=== PATIENT | female | born 1980 | race African-American/Black ===

== ENCOUNTER 2021-02-20 20:28 | Emergency (ER) | payer OTHER, SELFPAY ==
--- NOTE | 2021-02-20 21:29 | PC.NURSE ---
2109- no answer when called
== END 2021-02-20 21:59 | disposition left against medical advice (07) ==
LOC: ANHED 21:45
PROVIDERS: PCP Nurse Practitioner Family
DX: Z53.21 Procedure and treatment not carried out due to patient leaving prior to being seen by health care provider (principal)
CPT/HCPCS: 99199

== ENCOUNTER 2021-04-27 16:34 | Emergency (ER) | payer OTHER, SELFPAY ==
[2021-04-27] VITALS (8 sets, daily range): BP systolic 130–173; BP diastolic 79–118; PULSE 85–96; RESP 14–18; TEMP 36.4; O2SAT 96–99
--- NOTE | 2021-04-27 16:40 | ECG_ITS ---
Measurements Intervals [place] Rate: 81 P: 26 DE: 142 QRS: -1 QRSD: 87 T: 9 QT: 386 QTc: 449 Interpretive Statements SINUS RHYTHM INCOMPLETE RIGHT BUNDLE BRANCH BLOCK VOLTAGE CRITERIA FOR LVH MINIMAL Q WAVES- HIGH LATERAL LEADS BORDERLINE T WAVE ABNORMALITY- INFERIOR LEADS BORDERLINE ECG Electronically Signed On 04-27-2021 17:00:50 CDT by Apollo Prabhakar D.O.
[2021-04-27 17:13] LABS: Basophils Percent Auto 0.4 % (0.2-1.2); Eosinophils Percent Auto 0.5 % (0-4.4); Hematocrit 36.1 % (37.0-47.0); Hemoglobin 11.2 g/dL (12.0-15.0); Immature Granulocyte Absolute 0.03 K/mm3 (0.00-0.031); Immature Granulocyte Percent A 0.4 % (0-0.5); Lymphocytes Absolute Auto 1.65 K/mm3 (0.9-3.2); Lymphocytes Percent Auto 22.2 % (18.3-44.2); Mean Corpuscular Hemoglobin 25.7 pg (26-34); Mean Corpuscular Volume 82.8 fl (80-100); Monocytes Absolute Auto 0.5 K/mm3 (0.1-0.6); Monocytes Percent Auto 6.9 % (2.6-8.5); Neutrophils Absolute Auto 5.2 K/mm3 (1.3-6.7); Neutrophils Percent Auto 69.6 % (45.5-73.1); Platelet Count Result 285 k/mm3 (150-375); Red Blood Count 4.36 M/mm3 (4.2-5.4); Red Cell Distribution Width 14.3 % (11.5-14.5); White Blood Count 7.4 K/mm3 (4.5-10.0)
[2021-04-27 17:20] LABS: Glucose Point of Care 201 mg/dl (65-105)
[2021-04-27 17:29] LABS: Anion Gap 11 mmol/L (8-16); Blood Urea Nitrogen 12 mg/dL (7-17); Calcium 9.5 mg/dL (8.4-10.2); Carbon Dioxide 25 mmol/L (22-30); Chloride 97 mmol/L (98-107); Estimated CRCL calculation 97 ml/min; Estimated Glomerular Filt Rate > 60; Glucose 217 mg/dL (65-110); Potassium 4.2 mmol/L (3.4-5.0); Sodium 133 mmol/L (137-145)
[2021-04-27 18:11] LABS: Add Urine Microscopic? YES; Appearance Urine Cloudy (Clear); Bacteria Urine Trace /hpf; Bilirubin Urine Negative (Negative); Color Urine Amber (Yellow); Glucose Urine UA 2+ mg/dL (Negative); Ketones Urine 2+ mg/dL (Negative); Leukocyte Esterase Ur Negative LEU/UL (Negative); Mucus Urine Heavy /lpf; Nitrate Urine Negative (Negative); Protein Urine 3+ mg/dL (Negative); RBC Urine 0-2 /hpf (0-2); Specific Grav Ur 1.028 (1.001-1.035); Squamous Epithelial Cell Urine Few /hpf (Few); Urobilinogen Urine Negative mg/dL (<2.0); WBC Urine 31-50 /hpf
[2021-04-27 18:15] LABS: Blood Urine Negative (Negative)
[2021-04-27] MEDS: FAMOTIDINE 20 MG/2 ML VIAL IV PUSH (18:34)
[2021-04-27] MEDS: MECLIZINE HCL 25 MG TABLET PO (18:34)
[2021-04-27] MEDS: SODIUM CHLORIDE 0.9% IV 1,000 ML 999 ML IV CONT ×3 (18:35→20:13)
[2021-04-27] MEDS: PROCHLORPERAZINE EDISYLATE 10 MG/2 ML VIAL IV PUSH (18:53)
--- NOTE | 2021-04-27 19:38 | ED.DIZZY ---
HPI - Dizziness General Chief Complaint: Dizziness Stated Complaint: headache, dizzy Time Seen by Provider: 04/27/21 18:19 Source: patient and RN notes reviewed Mode of arrival: ambulatory Limitations: no limitations History of Present Illness HPI Narrative: Patient is a 41-year-old female who presents to emergency department for evaluation of dizziness patient notes that the symptoms began on Tuesday she had emesis and notes that her blood sugar has been elevated patient states at that time she took her Trulicity which causes nausea and she had emesis and has persisted emesis through today patient notes that she has also had mild headache denies any other URI symptoms vomiting diarrhea prior to the onset of the symptoms. Patient notes that she has been trying to tolerate liquids with difficulty. Patient on arrival in no distress does not appear uncomfortable has not taken anything for her symptoms Related Data Home Medications Medication Instructions Recorded Confirmed dulaglutide [Trulicity] mg SUBCUT 09/01/19 metformin 09/01/19 norethindrone (contraceptive) mg 09/01/19 Allergies Allergy/AdvReac Type Severity Reaction Status Date / Time No Known Allergies Allergy Mild Unverified 09/30/18 16:19 Review of Systems Review of Systems: All systems reviewed & are unremarkable except as noted in HPI and below PMFSH Past Medical History Medical History Diabetes Diabetic neuropathy Social History Social History Second hand tobacco smoke exposure: No Alcohol intake: current Exam Narrative: Exam Narrative: GENERAL: Well-appearing, well-nourished, and in no acute distress. HEAD: Normocephalic, atraumatic. EYES: PERRLA and EOMI. ENT: Nares clear, no rhinorrhea or epistaxis. Mucous membranes moist. CHEST: Clear to auscultation. No respiratory distress. No wheezes rales or rhonchi HEART: Regular rate and rhythm. No murmur heard. Normal peripheral pulses. ABDOMEN: Soft, nontender, nondistended EXTREMITIES: Normal range of motion. No edema. SKIN: Warm, dry, no rash. NEURO: No focal deficits. Alert and oriented x3. Cranial nerves II through XII grossly intact PSYCH: Normal mood and affect. Course Course Emergency Course: Patient evaluated emergency department no high risk changes in the evaluation will have her urine cultured has been hydrated tolerating p.o. intake no distress felt appropriate for outpatient reevaluation given reasons to return ABCs and vital signs intact and stable Vital Signs Vital signs: Vital Signs Temperature 97.6 F 04/27/21 17:13 Pulse Rate 86 04/27/21 17:13 Respiratory Rate 18 04/27/21 17:13 Blood Pressure 173/110 H 04/27/21 17:13 Pulse Oximetry 98 04/27/21 17:13 Temperature 97.6 F 04/27/21 17:13 Pulse Rate 96 04/27/21 19:50 Respiratory Rate 18 04/27/21 17:13 Blood Pressure 142/79 H 04/27/21 19:50 Pulse Oximetry 98 04/27/21 19:50 MDM - Dizziness MDM Narrative Medical decision making narrative: Patients headache was not sudden or maximal in onset. There are no focal neurological deficits on exam. Subarachnoid hemorrhage is felt to be unlikey at this time. There is no history of fever, and neck is supple without meningismus, making meningitis unlikely. No traumatic history or signs of trauma on exam. No risk factors for CVA, risk factors reviewed. NO ocular signs on exam and in history to suggest acute glaucoma. Patients headache is felt to be a reasonable candidate for outpatient evaluation Lab Data Result diagrams: 04/27/21 17:02 04/27/21 17:02 Labs: Lab Results 04/27/21 04/27/21 04/27/21 Range/Units 17:02 17:02 17:18 WBC 7.4 (4.5-10.0) K/mm3 RBC 4.36 (4.2-5.4) M/mm3 Hgb 11.2 L (12.0-15.0) g/dL Hct 36.1 L (37.0-47.0) % MCV 82.8 (80-100) fl MCH 25.7 L (26-34) pg MC
[2021-04-27] MEDS: KETOROLAC 30 MG/ML VIAL (*BKC) IV PUSH (20:12)
== END 2021-04-27 21:00 | disposition home or self-care (01) ==
PROVIDERS: Emergency Provider Emergency Medicine; PCP Nurse Practitioner Family
DX: R51.9 Headache, unspecified (principal); R11.10 Vomiting, unspecified; E11.9 Type 2 diabetes mellitus without complications; Z79.84 Long term (current) use of oral hypoglycemic drugs
CPT/HCPCS: 36415; 80048; 81001; 81025; 82948; 85025; 87077; 87086; 87088; 93005; 96361; 96374; 96375; 99284; A9270; J0131; J0780; J1885; J7030

== ENCOUNTER 2022-05-17 07:37 | Observation (INO) | payer OTHER, SELFPAY ==
[2022-05-17] VITALS (21 sets, daily range): BP systolic 150–177; BP diastolic 89–102; PULSE 58–92; RESP 14–19; TEMP 36.4–36.9; O2SAT 98–100; BMI 35.6; BMI 36.1
--- NOTE | 2022-05-17 | ECHO_ITS ---
Patient Info Name: Minoo Hayden Age: 42 years : 1980 Gender: Female Ht: 69 in Wt: 247 lbs BSA: 2.38 m2 HR: 68 bpm BP: 177 / 97 mmHg Technical Quality: Good Exam Date: 05/17/2022 2:17 PM Exam Location: [facility] Room: [facility] Patient Status: Inpatient Admit Date: 05/17/2022 Staff Ordering Physician: Chloé Gonzalez NP Fabrication Technician: Bárbara Mcmanus RDCS Attending Provider: Pat Thomas MD Referring Physician: Carlos SNYDER; Exam Type: CA echo doppler w bubble study Study Info Indications - STROKE SYMPTOMS Complete two-dimensional, color flow and Doppler transthoracic echocardiogram is performed with agitated saline. Contrast/Agitated Saline Contrast/Ag. Saline: Agitated Saline Amount: 20.00 ml Existing IV Access: Yes Summary 1. Left ventricular size and thickness with good contractility of all segments. Normal diastolic function. Ejection fraction 63%. 2. Borderline left atrial enlargement. 3. No significant valve disease. 4. The atrial septum appears intact and normal. No evidence of shunting with agitated saline during normal respiration and Valsalva maneuver. 5. Normal sinus rhythm. Left Ventricle Left ventricular chamber dimension is normal. Left ventricular systolic function is normal, estimated at Empty. There is no increased left ventricular wall thickness. Left ventricular septal wall motion is normal. The left ventricular diastolic function is normal. Right Ventricle Right ventricular chamber dimension is normal. Right ventricular systolic function is normal. Left Atria Left atrial chamber dimension is normal. Right Atria Right atrial chamber dimension is normal. Aortic Valve The aortic valve is trileaflet. There is no aortic valve sclerosis. There is no aortic valve stenosis. There is no aortic valve regurgitation. Pulmonic Valve The pulmonic valve is normal. There is no pulmonic valve stenosis. There is trace pulmonic regurgitation. Mitral Valve The mitral valve has normal leaflets. There is no mitral valve stenosis. There is trace mitral valve regurgitation. Tricuspid Valve The tricuspid valve leaflets are normal. There is no significant tricuspid valve stenosis. There is trace tricuspid valve regurgitation. No pulmonary hypertension, estimated pulmonary arterial systolic pressure is 22 mmHg. Pericardium/Pleural The pericardium appears normal. There is no pericardial effusion. Inferior Vena Cava Normal inferior vena cava with >50% collapse upon inspiration consistent with Empty right atrial pressure, 10 mmHg. Aorta The aortic root size at the sinus of Valsalva is normal. The prox ascending aorta size is normal. Left Ventricular Outflow Tract Name Value Normal LVOT 2D LVOT Diameter 2.1 cm LVOT Doppler LVOT Peak Gradient 5 mmHg LVOT Mean Gradient 3 mmHg LVOT VTI 23 cm LVOT VTI/AV VTI Ratio 0.8 LVOT Stroke Volume
--- NOTE | ~2022-05-17 | XR_ITS ---
EXAMINATION: XR chest 1V DATE: 05/17/2022 08:19 INDICATION: Cough. Left-sided numbness. TECHNIQUE: A single frontal view of the chest was obtained. COMPARISON: Chest 2 views 05/25/2009 FINDINGS: The chest demonstrates clear lungs without pneumonia, pleural effusion, or pneumothorax. Th e heart size is normal. IMPRESSION: 1. No acute cardiopulmonary disease. Reviewed, dictated and finalized at location A.
--- NOTE | ~2022-05-17 | CT_ITS ---
EXAMINATION: CT brain wo con DATE: 05/17/2022 08:14 INDICATION: Left-sided numbness and tingling. TECHNIQUE: Computed tomography (CT) of the head was performed without intravenous contrast. The mA wa s adjusted according to patient size. Iterative reconstruction technique was employed. The dose-lengt h product was 605.33 mGy-cm. COMPARISON: Head CT 09/30/2018 FINDINGS: There is no intracranial hemorrhage, acute infarction, or abnormal intracranial mass lesion . The ventricles are normal in size. The orbits are normal. The paranasal sinuses are clear. The mast oid air cells are normal. IMPRESSION: 1. Normal brain. Reviewed, dictated and finalized at location A. IMPRESSION: 1. Normal brain.
--- NOTE | ~2022-05-17 | US_ITS ---
EXAMINATION: US carotid duplex BI DATE: 05/17/2022 13:07 INDICATION: Right thalamus infarct. TECHNIQUE: Grayscale, color Doppler, and pulsed Doppler images of the cervical carotid arteries were obtained. The degree of vessel stenosis is placed in one of the following categories: normal, <50%, 5 0-69%, >=70% but less than near-occlusion, near-occlusion, or total occlusion. Note that percent sten osis relative to normal distal artery lumen diameter is indirectly measured from velocity measurement s as described by Dawson, et al. Radiology 2003; 229:340-346. COMPARISON: None. FINDINGS: RIGHT: The right common carotid artery (CCA) peak systolic velocity (PSV) is 91 cm/s. The right internal car otid artery (ICA) PSV is 90 cm/s. The right ICA end-diastolic velocity (EDV) is 26 cm/s. The right IC A/CCA PSV ratio is 1.0. Grayscale and color Doppler images yield an estimate of <50% diameter reducti on from plaque in the ICA. There is antegrade flow in the right vertebral artery. LEFT: The left CCA PSV is 82 cm/s. The left ICA PSV is 115 cm/s. The left ICA EDV is 38 cm/s. The left ICA/ CCA PSV ratio is 1.4. Grayscale and color Doppler images yield an estimate of <50% diameter reduction from plaque in the ICA. There is antegrade flow in the left vertebral artery. IMPRESSION: 1. <50% stenosis in the right internal carotid artery. 2. <50% stenosis in the left internal carotid artery. Reviewed, dictated and finalized at location A.
--- NOTE | ~2022-05-17 | US_ITS ---
EXAMINATION:US venous doppler LE BI INDICATION:Leg pain TECHNIQUE: Multiple grayscale, color flow and Doppler images of the right and left lower extremity de ep venous systems were obtained and reviewed. COMPARISON:No prior studies for comparison. FINDINGS: The common femoral, superficial femoral and popliteal veins demonstrate normal respiratory variation, augmentation and compressibility. Color flow is also seen within the posterior tibial, pe roneal, greater saphenous and profunda veins. IMPRESSION: 1: No lower extremity deep venous thrombosis. Reviewed, dictated and finalized at location A.
--- NOTE | ~2022-05-17 | MR_ITS ---
EXAMINATION: MR brain/brain stem wo/w con DATE: 05/17/2022 12:34 INDICATION: Left-sided paresthesias. TECHNIQUE: Magnetic resonance imaging (MRI) of the brain and brainstem was performed without and with 20 mL MultiHance intravenous contrast. COMPARISON: Head CT 05/17/2022 FINDINGS: There is an acute infarct in right thalamus. There is no abnormal mass lesion or intracrani al hemorrhage. There are scattered areas of nonspecific increased T2-weighted signal intensity in the cerebral white matter, which is within normal limits for the patient's age. The ventricles are nay l in size. The paranasal sinuses are clear. The orbits are normal. The mastoid air cells are normal. IMPRESSION: 1. 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 Reviewed, dictated and finalized at location A.
--- NOTE | ~2022-05-17 | XR_ITS ---
EXAMINATION: XR hip RT 2V w AP pelvis DATE: 05/18/2022 10:46 INDICATION: Right hip pain. TECHNIQUE: An anteroposterior view of the pelvis and 2 views of right hip were obtained. COMPARISON: None. FINDINGS: Bone alignment is normal. No fracture. There is mild osteoarthritis of the hips. IMPRESSION: 1. Mild osteoarthritis of the hips. Reviewed, dictated and finalized at location A.
[2022-05-17 07:49] LABS: Glucose Point of Care 331 mg/dl (65-105)
--- NOTE | 2022-05-17 08:03 | ECG_ITS ---
Measurements Intervals [place] Rate: 78 P: 6 [place]: 132 QRS: -16 QRSD: 86 T: 3 QT: 372 QTc: 426 Interpretive Statements SINUS RHYTHM VOLTAGE CRITERIA FOR LVH [MEETS CRITERIA IN ONE OF: R(aVL), S(V1), R(V5), R(V5/V6)+S(V1)] COMPARED TO ECG 04/27/2021 16:55:26 NO SIGNIFICANT CHANGES Electronically Signed On 05-17-2022 14:27:48 CDT by Chevy Lafleur M.D.
--- NOTE | 2022-05-17 08:09 | PC.NURSE ---
pt off floor to CT scan
[2022-05-17 08:14] LABS: Basophils Percent Auto 0.3 % (0.2-1.2); Eosinophils Absolute Auto 0.1 K/mm3 (0-0.3); Eosinophils Percent Auto 1.9 % (0-4.4); Hematocrit 36.8 % (37.0-47.0); Hemoglobin 11.2 g/dL (12.0-15.0); Immature Granulocyte Absolute 0.01 K/mm3 (0.00-0.031); Immature Granulocyte Percent A 0.2 % (0-0.5); Lymphocytes Absolute Auto 1.67 K/mm3 (0.9-3.2); Lymphocytes Percent Auto 26.7 % (18.3-44.2); Mean Corpuscular HGB Conc 30.4 g/dl (32-36); Mean Corpuscular Hemoglobin 24.8 pg (26-34); Mean Corpuscular Volume 81.4 fl (80-100); Mean Platelet Volume 11.2 fl (7.4-10.4); Monocytes Absolute Auto 0.4 K/mm3 (0.1-0.6); Monocytes Percent Auto 6.1 % (2.6-8.5); Neutrophils Absolute Auto 4.1 K/mm3 (1.3-6.7); Neutrophils Percent Auto 64.8 % (45.5-73.1); Platelet Count Result 262 k/mm3 (150-375); Red Blood Count 4.52 M/mm3 (4.2-5.4); Red Cell Distribution Width 14.3 % (11.5-14.5); White Blood Count 6.3 K/mm3 (4.5-10.0)
[2022-05-17 08:26] LABS: Alanine Aminotransferase 15 U/L (6-35); Albumin Level 4.6 g/dL (3.5-5.1); Alkaline Phosphatase 118 U/L (38-126); Anion Gap 11 mmol/L (8-16); Aspartate Amino Transferase 21 U/L (14-36); Bilirubin,Total 0.7 mg/dL (0.2-1.3); Blood Urea Nitrogen 14 mg/dL (7-17); Calcium 9.4 mg/dL (8.4-10.2); Carbon Dioxide 26 mmol/L (22-30); Chloride 94 mmol/L (98-107); Estimated CRCL calculation 106 ml/min; Estimated Glomerular Filt Rate > 60; Glucose 342 mg/dL (65-110); Potassium 3.7 mmol/L (3.4-5.0); Sodium 131 mmol/L (137-145)
[2022-05-17 08:30] LABS: Partial Thromboplastin Time 26.1 SECONDS (22.3-36.8)
--- NOTE | 2022-05-17 08:31 | ED.NEUROSD ---
HPI - Neuro Symptoms/Deficit General Chief Complaint: Suspected CVA Stated Complaint: L sided numbness Time Seen by Provider: 05/17/22 07:50 History of Present Illness HPI Narrative: Patient is a 42-year-old female that presents the emergency department with chief complaint of left-sided numbness. Patient states approximately 1 week ago she had an episode where she had some numbness in her left hand. Patient states it resolved and then at 2 AM Tuesday she started having numbness on the left side of her body from including that the head and left upper extremity and left lower extremity. The patient states its been constant since 2 AM Tuesday and the patient decided to come to the emergency department this morning on Tuesday. The patient reports no chest pain or shortness of breath denies motor weakness denies difficulty with speech denies issues with breakfast attendant strength or ambulation. The patient does report that she has history of diabetes and reports she has history of peripheral neuropathy. Related Data Home Medications Medication Instructions Recorded Confirmed dulaglutide 1.5 mg/0.5 mL mg subcut 09/01/19 subcutaneous pen injector (Trulicity) metformin 09/01/19 norethindrone (contraceptive) 0.35 mg 09/01/19 mg tablet Allergies Allergy/AdvReac Type Severity Reaction Status Date / Time No Known Allergies Allergy Mild Verified 05/17/22 07:50 Review of Systems Review of Systems: A 10 system review of systems was completed on the patient and is negative except for what is stated in the HPI. Nursing and ancillary documentation was reviewed. [facility] Past Medical History Medical History Diabetes Diabetic neuropathy Social History Social History Second hand tobacco smoke exposure: No Alcohol intake: current Exam Narrative: GENERAL: Well-appearing, well-nourished, and in no acute distress. HEAD: Normocephalic, atraumatic. EYES: PERRLA and EOMI. ENT: Nares clear, no rhinorrhea or epistaxis. Mucous membranes moist. NECK: Supple. CHEST: Clear to auscultation. No respiratory distress. HEART: Regular rate and rhythm. No murmur heard. Normal peripheral pulses. ABDOMEN: Soft, nontender, nondistended, normal active bowel sounds. EXTREMITIES: Normal range of motion. No edema. SKIN: Warm, dry, no rash. NEURO: No focal deficits. Alert and oriented x3. Decree sensation of the left face, left upper extremity and left lower extremity. PSYCH: Normal mood and affect. Course Course Emergency Course: Patient symptoms began at 2 AM on Tuesday morning patient would not be a lytic candidate due to onset of symptoms. CT head showed no evidence of large stroke. EKG showed no acute ischemic changes. The patient did have an elevated troponin. Given this the case was discussed with the hospitalist the patient will be admitted to the hospital for serial cardiac markers and further evaluation with MRI for possible stroke. Vital Signs Vital signs: Vital Signs Pulse Rate 79 05/17/22 07:42 Respiratory Rate 15 05/17/22 07:42 Blood Pressure 170/100 H 05/17/22 07:42 Pulse Oximetry 98 05/17/22 07:42 Oxygen Delivery Room Air 05/17/22 07:42 Pulse Rate 78 05/17/22 08:33 Respiratory Rate 14 05/17/22 08:33 Blood Pressure 150/101 H 05/17/22 08:33 Pulse Oximetry 100 05/17/22 08:33 Oxygen Delivery Room Air 05/17/22 07:42 MDM - Neuro Symptoms/Deficit Lab Data Result diagrams: 05/17/22 08:08 05/17/22 08:08 Labs: Lab Results 05/17/22 05/17/22 05/17/22 Range/Units 07:46 08:08 08:08 WBC 6.3 (4.5-10.0) K/mm3 RBC 4.52 (4.2-5.4) M/mm3 Hgb 11.2 L (12.0-15.0) g/dL Hct 36.8 L (37.0-47.0) % MCV 81.4 (80-100) fl MCH 24.8 L (26-34) pg MCHC 30.4 L (32-36) g/dl RDW 14.3 (11.5-14.5)
--- NOTE | 2022-05-17 08:34 | PC.NURSE ---
Urine sent to lab. Called lab to request a bedside .
[2022-05-17 08:40] LABS: Troponin I 0.182 ng/mL (0.000-0.034)
[2022-05-17 08:41] LABS: Appearance Urine Clear (Clear); Bilirubin Urine 1+ (Negative); Blood Urine 1+ (Negative); Color Urine Yellow (Yellow); Glucose Urine UA 3+ mg/dL (Negative); Ketones Urine Trace mg/dL (Negative); Leukocyte Esterase Ur Negative LEU/UL (Negative); Nitrate Urine Negative (Negative); Protein Urine 1+ mg/dL (Negative); Specific Grav Ur >= 1.030 (1.001-1.035); Urobilinogen Urine 0.2 mg/dL (<2.0); pH Urine 5.5 (5.0-9.0)
[2022-05-17 08:45] LABS: Mucus Urine Few /lpf; RBC Urine 0-2 /hpf (0-2); Squamous Epithelial Cell Urine Rare /hpf (Few)
[2022-05-17] MEDS: ASPIRIN 81 MG CHEWABLE TABLET 324 MG PO (08:46)
[2022-05-17 08:49] LABS: Add Urine Microscopic? YES
[2022-05-17 08:51] LABS: Pregnancy On Board Control Positive; Urine Pregnancy Test Negative
[2022-05-17 09:01] LABS: Amphetamine Screen Urine Negative (Negative); Barbiturate Screen Urine Negative (Negative); Benzodiazepines Screen Urine Negative (Negative); Cannabinoid Screen Urine Positive (Negative); Cocaine Screen Urine Negative (Negative); Methadone Screen Urine Negative (Negative); Opiate Screen Urine Negative (Negative); Phencyclidine Screen Urine Negative (Negative)
[2022-05-17] MEDS: SODIUM CHLORIDE 0.9% IV 1,000 ML 125 ML IV CONT (09:18)
--- NOTE | 2022-05-17 09:45 | PC.NURSE ---
No change in neuro exam, still reports diminished sensation on left side of face and arm. States bilateral legs are baseline tingling from neuropathy.
[2022-05-17 10:16] LABS: SARS-CoV-2 RNA PCR Negative
--- NOTE | 2022-05-17 10:39 | PC.NURSE ---
Report called to IMU nurse Silvano, patient will be arriving in bed 206-2
--- NOTE | 2022-05-17 11:02 | ADMGEN ---
This patient, Minoo Hayden, was admitted to IMU Room 206-02. Patient/family oriented to hospital policies and general routines including ID bracelet, bed and alarms, visiting hours, pain management, procedures, bathroom and other care routines, personal items, smoking policy, room service/diet, and visiting hours. Information on how to activate the Rapid Response Team has been discussed. Patient/Family are encouraged to report perceived risks to care and to ask questions if they do not understand what they are told or what they should do.
--- NOTE | 2022-05-17 12:04 | PM.IMHP ---
H&P: HPI History of Present Illness Date/Time: 05/17/22 1130 Chief Complaint: Numbness and tingling to left side of her body Narrative: This is a 42-year-old female patient who has a history of diabetes with neuropathy and hypertension. The patient stated 1 week ago she had numbness and tingling to the left side of her body that only lasted approximately 10 minutes. The symptoms resolved on its own. The patient stated that she went out with her friends this past Tuesday night and had a couple drinks an 8 some popcorn that she thought was laced with CBD. The patient stated on Tuesday approximately 2:00 a.m. she started having some numbness and tingling to the left side of her face left arm and left lower extremity. She had no neurological deficit but felt the numbness as if she had been to the dentist and had been given Novocain. The patient denied any chest pain but stated that she had angina many years ago. The patient did take aspirin Tuesday and her symptoms did not resolve. The numbness and tingling continued until this morning and she was going to go to her doctor's office but decided to come to the emergency room instead. She has no difficulty swallowing or any other neurological deficits. The patient stated that her blood sugars have been in the 300s last couple days. The patient does not take insulin but took her oral medication. Her blood pressure was also elevated today. The patient stated that she typically takes her medicine every day. She monitors her blood pressure at home and it is usually within normal limits. Today her sodium was 131 her blood sugar was 342. Troponin 0.182 and 0.152. She denies any chest pain or shortness of breath at this time. She has no previous cardiac history. Chest x-ray was read as no acute cardiopulmonary disease. Head CT was noted to be normal brain. The patient was ordered IV fluids and aspirin in the emergency room. The patient is being admitted to observation status on the date of service of 05/17/2022. Review of Systems Review of Systems: All systems reviewed & are unremarkable except as noted in HPI and below Constitutional: Constitutional: Reports as per HPI and Reports no additional constitutional complaints Eyes: Eyes: Reports as per HPI and Reports no additional eye complaints ENT: Reports system reviewed and no additional complaints, except as documented and Reports Normal hearing present Cardiovascular: Cardiovascular: Reports no additional cardiovascular complaints Respiratory: Respiratory: Reports no additional respiratory complaints and Reports no additional respiratory complaints Gastrointestinal: Gastrointestinal: Reports as per HPI and Reports no additional gastrointestinal complaints Musculoskeletal: Musculoskeletal: Reports no additional musculoskeletal complaints Integumentary/Breasts: Skin/Breast: Reports system reviewed and no additional complaints, except as docu and Reports as per HPI Neurologic: Reports system reviewed and no additional complaints, except as documented, Reports as per HPI and Reports Normal hearing present Psychiatric: Psychiatric: Reports no additional psychiatric complaints and Reports as per HPI Endocrine: Endocrine: Reports no additional endocrine complaints Hematologic/Lymphatic: Hematologic/Lymphatic: Reports no additional hematologic/lymphatic complaints Allergic/Immunologic: Allergic/Immunologic: Reports no additional allergic/immunologic complaints [facility] Past Medical History Medical History (Updated 05/17/22 @ 12:21 by Chloé Gonzalez NP) Diabetes Diabetic neuropathy Hypertension Surgical History Surgical History (Updated 05/17/22 @ 12:14 by Chloé Gonzalez NP) No pertinent past surgical history Family History Family History Father Diabetes mellitus Mother Hypertension Social History Social History (Updated 05/17/22 @ 12:15 by Chloé Gonzalez
[2022-05-17 12:08] LABS: Troponin I 0.152 ng/mL (0.000-0.034)
[2022-05-17 12:44] LABS: Glucose Point of Care 340 mg/dl (65-105)
[2022-05-17] MEDS: INSULIN ASPART (*BKC) 100 UNITS/ML SUB-Q ×2 (14:49→17:19)
[2022-05-17 15:28] LABS: Troponin I 0.129 ng/mL (0.000-0.034)
--- NOTE | 2022-05-17 16:34 | PC.NURSE ---
This patient, Minoo Hayden, was transferred to [ [facility]] on 05/17/22 at 1620. Personal belongings sent with patient. Report given to [ SANDI Kiser @ [id number]]. Appropriate documentation sent with patient.
[2022-05-17 16:44] LABS: Glucose Point of Care 314 mg/dl (65-105)
[2022-05-17] MEDS: metFORMIN HCL 500 MG TABLET 1000 MG PO (17:20)
[2022-05-17 20:51] LABS: Glucose Point of Care 296 mg/dl (65-105)
[2022-05-17] MEDS: hydrALAZINE HCL 20 MG/ML VIAL 10 MG IV PUSH (20:58)
[2022-05-18] VITALS (8 sets, daily range): BP systolic 146–147; BP diastolic 84–87; PULSE 65–91; RESP 15; TEMP 36.4; O2SAT 99
[2022-05-18 05:47] LABS: Basophils Percent Auto 0.7 % (0.2-1.2); Eosinophils Absolute Auto 0.1 K/mm3 (0-0.3); Eosinophils Percent Auto 2.9 % (0-4.4); Hematocrit 35.5 % (37.0-47.0); Hemoglobin 10.7 g/dL (12.0-15.0); Immature Granulocyte Absolute 0.01 K/mm3 (0.00-0.031); Immature Granulocyte Percent A 0.2 % (0-0.5); Lymphocytes Absolute Auto 2.17 K/mm3 (0.9-3.2); Lymphocytes Percent Auto 48.1 % (18.3-44.2); Mean Corpuscular HGB Conc 30.1 g/dl (32-36); Mean Corpuscular Hemoglobin 24.9 pg (26-34); Mean Corpuscular Volume 82.6 fl (80-100); Mean Platelet Volume 11.1 fl (7.4-10.4); Monocytes Absolute Auto 0.4 K/mm3 (0.1-0.6); Monocytes Percent Auto 8.4 % (2.6-8.5); Neutrophils Absolute Auto 1.8 K/mm3 (1.3-6.7); Neutrophils Percent Auto 39.7 % (45.5-73.1); Platelet Count Result 229 k/mm3 (150-375); Red Cell Distribution Width 14.3 % (11.5-14.5); White Blood Count 4.5 K/mm3 (4.5-10.0)
[2022-05-18] MEDS: ACETAMINOPHEN 325 MG TABLET 650 MG PO (05:57)
[2022-05-18 06:05] LABS: Alanine Aminotransferase 12 U/L (6-35); Albumin Level 4.1 g/dL (3.5-5.1); Alkaline Phosphatase 95 U/L (38-126); Anion Gap 10 mmol/L (8-16); Aspartate Amino Transferase 18 U/L (14-36); Bilirubin,Total 0.7 mg/dL (0.2-1.3); Blood Urea Nitrogen 12 mg/dL (7-17); Carbon Dioxide 26 mmol/L (22-30); Chloride 96 mmol/L (98-107); Cholesterol 217 mg/dL (0-200); Estimated CRCL calculation 109 ml/min; Estimated Glomerular Filt Rate > 60; Glucose 280 mg/dL (65-110); HDL Direct 58 mg/dL; Potassium 3.8 mmol/L (3.4-5.0); Sodium 132 mmol/L (137-145); Triglycerides 232 mg/dL (<150)
[2022-05-18 06:14] LABS: Troponin I 0.113 ng/mL (0.000-0.034)
[2022-05-18 06:16] LABS: LDL Cholesterol Direct 107 mg/dL
[2022-05-18 07:25] LABS: Free T4 Free Thyroxine Reflex 1.11 ng/dL (0.78-2.19)
[2022-05-18 08:03] LABS: Glucose Point of Care 274 mg/dl (65-105)
[2022-05-18 08:09] LABS: Total Triiodothyronine (T3) 1.16 NG/ML (0.97-1.69)
[2022-05-18] MEDS: CHOLECALCIFEROL 1,000 UNITS TABLET 5000 UNITS PO (08:42)
[2022-05-18] MEDS: metFORMIN HCL 500 MG TABLET 1000 MG PO (08:42)
[2022-05-18] MEDS: INSULIN ASPART (*BKC) 100 UNITS/ML SUB-Q ×3 (08:42→17:19)
[2022-05-18] MEDS: amLODIPine BESYLATE 5 MG TABLET 10 MG PO (08:42)
[2022-05-18] MEDS: ASPIRIN 81 MG CHEWABLE TABLET PO (08:45)
--- NOTE | 2022-05-18 11:02 | PM.IMPN ---
Progress Note: A&P Assessment and Plan (1) Elevated troponin: Code(s): R77.8 - Other specified abnormalities of plasma proteins Status: Acute Assessment and Plan: -troponins are trending downward, however remain elevated. Patient is asymptomatic. -awaiting results of echo with bubble study -heart score is a 4. Cardiology is consulted. -continue telemetry (2) Acute CVA (cerebrovascular accident): Code(s): I63.9 - Cerebral infarction, unspecified Status: Acute Assessment and Plan: -CT of the brain was negative. -MRI of brain demonstrates acute right-sided thalamic infarct -consult neurology. -continue aspirin daily, 81 mg -lipid panel performed. Total cholesterol is elevated at 217, triglycerides are elevated at 232, LDL is 107 and HDL was 58. Patient will need to be started on a statin. Will initiate atorvastatin 40 mg p.o. daily. -appreciate neurology's recommendations on the potential addition of Plavix for DAPT therapy given her CVA. -venous Dopplers are ordered at this time. -carotid Dopplers indicated less than 50% stenosis bilaterally. -to decrease further risk of CVA and cardiac related , patient will have to incorporate moderate to advanced lifestyle changes into her regimen, including diet, exercise and change in medication regimens. -dietitian and life skills educator has been consulted. -PT and OT evaluations ordered in light of new CVA. (3) Hypertension: Code(s): I10 - Essential (primary) hypertension Status: Chronic Assessment and Plan: -continue with Norvasc -p.r.n. hydralazine -blood pressure this morning is 147/87. Some permissive hypertension is allowed at this time. - to decrease further risk of CVA and cardiac related , patient will have to incorporate moderate to advanced lifestyle changes into her regimen, including diet, exercise and change in medication regimens. (4) Diabetes: Code(s): E11.9 - Type 2 diabetes mellitus without complications Status: Acute Assessment and Plan: -poorly controlled diabetes mellitus as evidenced by hemoglobin A1c of 12.0. -discontinue home metformin. -continue moderate sliding scale insulin. -as fasting glucose this morning was elevated at 274, initiate Lantus 10 units at HS. -to decrease patient's risk of both additional CVA as well as heart disease and [place], she will need to be initiated on insulin at home as she has poor control. -dietitian consult placed -life skills educator consult placed for education of home insulin. - to decrease further risk of CVA and cardiac related , patient will have to incorporate moderate to advanced lifestyle changes into her regimen, including diet, exercise and change in medication regimens. (5) Diabetic neuropathy: Code(s): E11.40 - Type 2 diabetes mellitus with diabetic neuropathy, unspecified Status: Acute Assessment and Plan: -the patient stated that she has had neuropathy to her feet for several years. -may consider gabapentin -this has likely worsened secondary to patient's uncontrolled diabetes mellitus as evidenced by hemoglobin A1c of 12.0. (6) Hip pain: Code(s): M25.559 - Pain in unspecified hip Status: Acute Assessment and Plan: - Baseline imaging to be performed of right hip and pelvis. - BLE venous dopplers are ordered - Monitor labs and vitals. Time Spent With Patient Time with patient: 15 - 25 minutes Subjective Date/time seen: 05/18/22 0950 This patient is examined at bedside today in interval assessment. She appears worried, tearful and states she just can not believe this is happening, when referring to her current medical situation as she has been told that she did have a right thalamic stroke. Patient is anxiously awaiting the arrival of Neurology and Cardiology as they have now been consulted as well. Labs that returned this morning were significant for a TSH of 6.420, however her T4 in her T3 were both
[2022-05-18 12:02] LABS: Glucose Point of Care 305 mg/dl (65-105)
--- NOTE | 2022-05-18 12:22 | PM.CNCAR ---
Assessment and Plan Assessment and plan (1) Elevated troponin: Code(s): R77.8 - Other specified abnormalities of plasma proteins Status: Acute Assessment and Plan: Patient admitted for stroke, found to have elevated troponins. No acute chest pain or ischemic appearing EKG changes, no h/o anginal CP Doubt ACS I think the elevated troponins are due to the stroke, and her hypertension. No need for ischemia evaluation. (2) Acute CVA (cerebrovascular accident): Code(s): I63.9 - Cerebral infarction, unspecified Status: Acute Assessment and Plan: Acute right thalamic infarct. Likely has small-vessel disease related to her hypertension, diabetes and hyperlipidemia. Surface echo did not show any vegetations, masses, or shunting through the atrium. However, I do recommend a transesophageal echo because she is young and has had a cryptogenic stroke, to look for unusual problems such as left atrial appendage thrombus, small masses or thrombi, and have a look at the aorta. She would like to take this under consideration but has not decided to proceed. Also advised the patient that there was a small association between marijuana use and stroke and heart disease. Agree with aspirin and atorvastatin. Neurology consult with Dr. Hopkins is pending. (3) Hypertension: Code(s): I10 - Essential (primary) hypertension Status: Chronic Assessment and Plan: High blood pressure has not been well controlled. Allow ?permissive hypertension? for now. (4) Diabetes: Code(s): E11.9 - Type 2 diabetes mellitus without complications Status: Acute Assessment and Plan: A1c was 12.0, not well controlled. Patient will work on it. (5) Hyperlipidemia associated with type 2 diabetes mellitus: Code(s): E11.69 - Type 2 diabetes mellitus with other specified complication; E78.5 - Hyperlipidemia, unspecified Status: Acute Assessment and Plan: Started on atorvastatin. History of Present Illness History of Present Illness Consult date/time: 05/18/22 12:22 Reason For Visit: Left sided paresthesia/CVA/elevated troponin/hyper Narrative: Minoo Chen is a 42 y.o. female whom I was asked to see at the request of Shaneka Arellano APN for my advice and opinion regarding her elevated troponin in the setting of an acute CVA. The patient has a history of diabetes with neuropathy and hypertension. she admits these are not well-controlled. The patient had numbness and tingling of her left side of her body 1 week ago for 10 minutes which resolved. On Tuesday night she had a couple of drinks and some popcorn least with CBD. On Tuesday around 2:00 a.m. she had some numbness and tingling of the left face and left side of her body. There is no chest discomfort or shortness of breath. She came to the emergency room Tuesday. CT scan did not show any stroke, but her MRI showed acute infarct of the right thalamus. Carotid ultrasound showed less than 50% stenosis bilaterally. Echo showed normal left ventricular function, borderline left atrial enlargement, EF 63%, no significant valve disease and no evidence of intracardiac shunting by bubble study. Patient smokes marijuana infrequently. No amphetamines or cocaine. No tobacco use. When she was young she did have some evaluation for heart murmur which resolved. She does have some chest pain every few months which is described as a sharp, pleuritic chest pain. Mild TEMPLE which she relates to her weight. Review of Systems Constitutional: Constitutional: Denies fever(s) Eyes: Eyes: Reports no additional eye complaints Cardiovascular: Cardiovascular: Reports chest pain, Denies pedal edema, Denies lightheadedness and Denies dyspne
--- NOTE | 2022-05-18 12:49 | WPDNEURCNPN ---
Assessment and Plan Assessment and plan (1) Diabetic neuropathy: Code(s): E11.40 - Type 2 diabetes mellitus with diabetic neuropathy, unspecified Status: Acute (2) Diabetes: Code(s): E11.9 - Type 2 diabetes mellitus without complications Status: Acute (3) Acute CVA (cerebrovascular accident): Code(s): I63.9 - Cerebral infarction, unspecified Status: Acute Plan 1 diabetes mellitus 2 diabetic neuropathy 3 right thalamic stroke plan is to wait for all the evaluation completed and discussed with the patient Consult date: 05/18/22 Time Seen: 10:30 Reason for consult: left-sided numbness HPI: Minoo Hayden is a 42 year old female admitted to the hospital through the emergency room for the complaints of left-sided numbness of 1 week duration initially she had the numbness in her left hand which subsequently resolved by 2:00 a.m. Tuesday she started having numbness on left side of her body including the head and left upper extremity and lower extremity which has remained constant since 2:00 a.m. Tuesday when she decided to come to the emergency room on Tuesday with no history of associated difficulties in breathing or difficulties in speech patient has been taking to [facility] as an outpatient 1.5 mg per 0.5cc injection in addition to metformin and norethindrone she is not allergic to any medication she has current alcohol intake a but is not a smoker. Initial evaluation in the emergency room revealed her blood pressure 170/100 with pulse ox of 98 on room air vital signs otherwise were stable routine blood studies were completely normal except a glucose of 342 and abnormal UA. Lower extremity Doppler study was negative bilaterally, hip and pelvic x-rays were compatible with mild osteoarthritis of the hip joints, carotid Doppler studies were negative with less than 50% stenosis bilaterally, and brain MRI documented acute infarct in right thalamus, chest x-ray negative, she does have cholesterol of 217 with triglycerides of 232 and LDL of 107 though HDL is 58 Review of Systems Review of Systems: All systems reviewed & are unremarkable except as noted in HPI and below PMFSH Past Medical History Medical History (Updated 05/18/22 @ 11:21 by GALINA Bateman) Diabetes Diabetic neuropathy Hypertension Surgical History Surgical History (Updated 05/17/22 @ 12:14 by Chloé Gonzalez NP) No pertinent past surgical history Family History Family History Father Diabetes mellitus Mother Hypertension Social History Social History (Updated 05/17/22 @ 12:15 by Chloé Gonzalez NP) Social History: 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 The patient admits to using CBD but denies any use. She is a social drinker and typically drinks a couple drinks she is out with her friends. The patient has 1 child. 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 Lifelong nonsmoker Code status full code Smoking status: Never smoker Second hand tobacco smoke exposure: No Alcohol intake: current Substance use: current Substance use type: marijuana Spiritual care concerns: No Meds Home Medications and Allergies Home Medications Medication Instructions Recorded Confirmed Type norethindrone (contraceptive) 0.35 0.35 mg PO DAILY 09/01/19 05/17/22 History mg tablet Elderberry Zinc Vit C 1 tablet PO DAILY 05/17/22 05/17/22 History amlodipine 10 mg tablet 10 mg PO DAILY 05/17/22 05/17/22 History cholecalciferol (vitamin D3) 125 125 mcg PO DAILY 05/17/22 05/17/22 History mcg (5,000 unit) capsule (Dialyvite Vitamin D) metformin 1,000 mg tablet 1,000 mg PO BIDWM 05/17/22 05/17/22 History Allergies Allergy/AdvReac Type Severity Reaction Status Date / Time No Known Allergies Allergy Mild Verified 05/17/22 11:08 Vital Signs Vital Signs - 24 hr 05/17/22 14:00 05/17/22 16:
--- NOTE | 2022-05-18 16:45 | PC.NURSE ---
Pt blood sugar is elevated today. Pt was offered a MARIELA tomorrow with Dr. Kaur and pt has refused. Dr. Kaur's office was called at 1644 and message was left with the exchange. Pt educated on dietary choices to help get blood sugar under control. Pt is hoping that by forming good habits here they will carry over at home. Pt is resting now with family at bedside, vital signs stable for patients baseline, will continue to monitor.
[2022-05-18 16:46] LABS: Glucose Point of Care 261 mg/dl (65-105)
[2022-05-18 20:18] LABS: Glucose Point of Care 306 mg/dl (65-105)
[2022-05-18] MEDS: ATORVASTATIN 40 MG TABLET PO (20:59)
[2022-05-18] MEDS: INSULIN GLARGINE (*BKC) 100 UNITS/ML 10 UNITS SUB-Q (21:01)
[2022-05-19] VITALS: BP 137/81; PULSE 72; PULSE 78; RESP 16; TEMP 36.8; O2SAT 99
[2022-05-19 04:00] VITALS: PULSE 70
[2022-05-19 08:04] VITALS: PULSE 85
[2022-05-19 08:17] LABS: Glucose Point of Care 238 mg/dl (65-105)
[2022-05-19] MEDS: INSULIN ASPART (*BKC) 100 UNITS/ML SUB-Q ×3 (08:31→17:17)
[2022-05-19] MEDS: ASPIRIN 81 MG CHEWABLE TABLET PO (08:33)
[2022-05-19] MEDS: amLODIPine BESYLATE 5 MG TABLET 10 MG PO (08:33)
[2022-05-19] MEDS: CHOLECALCIFEROL 1,000 UNITS TABLET 5000 UNITS PO (08:33)
[2022-05-19 09:45] VITALS: BMI 38.0
--- NOTE | 2022-05-19 11:20 | PM.DS ---
DS: Admitting Diagnosis Discharge Date 05/19/2022 Admitting Diagnosis Elevated troponin, acute CVA, hypertension, diabetes mellitus poorly controlled, diabetic neuropathy DS: Discharge Diagnosis Discharge Diagnosis (1) Elevated troponin: Code(s): R77.8 - Other specified abnormalities of plasma proteins Status: Acute Assessment and Plan: -troponins are trending downward, however remain elevated. Patient is asymptomatic. -awaiting results of echo with bubble study -heart score presenting as a 4. -cardiology consult yesterday, recommendations were made for MARIELA, however patient did not want to pursue at this time. Cardiology did not believe there was any indication for stress testing at this time. Echocardiogram demonstrated normal left ventricular size and contractility within normal diastolic function as well ejection fraction 63%. -cardiology is in agreement with hospitalist plan initiating statin therapy. (2) Acute CVA (cerebrovascular accident): Code(s): I63.9 - Cerebral infarction, unspecified Status: Acute Assessment and Plan: -CT of the brain was negative. -MRI of brain demonstrates acute right-sided thalamic infarct -neurology has evaluated patient and recommends outpatient follow-up with the initiation of a statin medication as well as aspirin daily. No necessity for Plavix at this point. -continue aspirin daily, 81 mg -lipid panel performed. Total cholesterol is elevated at 217, triglycerides are elevated at 232, LDL is 107 and HDL was 58. Patient will need to be started on a statin. Atorvastatin 40 mg p.o. daily initiated. -venous Dopplers are negative for any DVT. -carotid Dopplers indicated less than 50% stenosis bilaterally. -to decrease further risk of CVA and cardiac related , patient will have to incorporate moderate to advanced lifestyle changes into her regimen, including diet, exercise and change in medication regimens. Extensive education was given to patient upon discharge. -dietitian and certified nursing attendant has been consulted and patient has demonstrated administration of insulin and also has been educated on appropriate food choices diabetics. -PT and OT evaluations were performed and no deficits appreciated. There are no recommendations for additional therapy upon discharge. (3) Hypertension: Code(s): I10 - Essential (primary) hypertension Status: Chronic Assessment and Plan: -continue with Norvasc 10 mg p.o. daily -blood pressure waxes and wanes recommend re-evaluation upon hospital follow-up for medication adjustment. Blood pressure this morning is 137/81. - to decrease further risk of CVA and cardiac related , patient will have to incorporate moderate to advanced lifestyle changes into her regimen, including diet, exercise and change in medication regimens. She verbalized understanding. (4) Diabetes: Code(s): E11.9 - Type 2 diabetes mellitus without complications Status: Acute Assessment and Plan: -poorly controlled diabetes mellitus as evidenced by hemoglobin A1c of 12.0. -discontinue home metformin. -initiate home moderate sliding scale insulin. -Lantus increased to 15 units at bedtime based upon this morning's fasting glucose. Further titration to be performed by primary care physician. -to decrease patient's risk of both additional CVA as well as heart disease and [place], she will need to be initiated on insulin at home as she has poor control. -dietitian consulted and patient received education on food choices. -certified nursing attendant consult was performed the patient has returned demonstrated administration of insulin. - to decrease further risk of CVA and cardiac related , patient will have to incorporate moderate to advanced lifestyle changes into her regimen, including diet, exercise and change in medication regimens. (5) Diabetic neuropathy: Code(s): E11.40 - Type 2 diabetes mellitus with diabetic neuropathy, unspecified
[2022-05-19 12:00] VITALS: PULSE 74
[2022-05-19 12:05] LABS: Glucose Point of Care 261 mg/dl (65-105)
--- NOTE | 2022-05-19 13:04 | PCDIET ---
Consult for diabetic education completed. HgA1C 12.0. See nutrition intervention for teaching summary. Thank you for the consult. Anu Ford MS RD LDN
[2022-05-19 14:00] VITALS: BP 141/92; PULSE 71; RESP 20; TEMP 36.2; O2SAT 100
[2022-05-19 16:04] VITALS: PULSE 81
[2022-05-19 17:13] LABS: Glucose Point of Care 257 mg/dl (65-105)
== END 2022-05-19 18:25 | disposition home or self-care (01) ==
LOC: ANHED 09:06 → ANHIMU 10:26 → ANH3MED 16:17
PROVIDERS: Nurse Practitioner; Admitting Provider Family Medicine; Emergency Provider Emergency Medicine; PCP Nurse Practitioner Family; Visit Provider Nurse Practitioner Adult Health
DX: I63.9 Cerebral infarction, unspecified (principal); R77.8 Other specified abnormalities of plasma proteins; I10 Essential (primary) hypertension; E11.40 Type 2 diabetes mellitus with diabetic neuropathy, unspecified; E11.65 Type 2 diabetes mellitus with hyperglycemia; M16.0 Bilateral primary osteoarthritis of hip; E78.1 Pure hyperglyceridemia; E78.2 Mixed hyperlipidemia; R29.701 NIHSS score 1; F12.90 Cannabis use, unspecified, uncomplicated; Z20.822 Contact with and (suspected) exposure to COVID-19; Z79.84 Long term (current) use of oral hypoglycemic drugs; Z79.3 Long term (current) use of hormonal contraceptives; Z79.82 Long term (current) use of aspirin; Z79.899 Other long term (current) drug therapy
CPT/HCPCS: 36415; 70450; 70553; 71045; 73502; 80053; 80061; 80307; 81001; 81025; 82948; 83036; 84439; 84443; 84480; 84484; 85025; 85610; 85730; 87086; 93005; 93306; 93880; 93970; 96361; 96374; 96375; 97161; 97165; 99285; A9270; A9577; C9803; G0378; J0360; J1815; J7030; U0003; U0005

== ENCOUNTER 2022-06-02 22:44 | Emergency (ER) | payer OTHER, SELFPAY ==
--- NOTE | ~2022-06-02 | XR_ITS ---
EXAMINATION: XR chest 2V DATE: 06/02/2022 23:06 INDICATION: Chest tightness. TECHNIQUE: Frontal and lateral views of the chest were obtained. COMPARISON: Chest single view 05/17/2022 FINDINGS: The chest demonstrates clear lungs without pneumonia, pleural effusion, or pneumothorax. Th e heart size is normal. IMPRESSION: 1. No acute cardiopulmonary disease. Reviewed, dictated and finalized at location A.
--- NOTE | ~2022-06-02 | CT_ITS ---
EXAMINATION: CT brain wo con DATE: 06/03/2022 00:02 INDICATION: Headache. TECHNIQUE: Computed tomography (CT) of the head was performed without intravenous contrast. The mA wa s adjusted according to patient size. Iterative reconstruction technique was employed. The dose-lengt h product was 605.33 mGy-cm. COMPARISON: Head CT 05/17/2022, brain MRI 05/17/2022 FINDINGS: There is no intracranial hemorrhage, acute infarction, or abnormal intracranial mass lesion . The ventricles are normal in size. The paranasal sinuses are clear. There is mild mucosal thickenin g in the ethmoid sinuses. The mastoid air cells are normal. The orbits are normal. IMPRESSION: 1. Normal brain. Reviewed, dictated and finalized at location A. IMPRESSION: 1. Normal brain.
[2022-06-02 22:52] VITALS: BP 149/95; PULSE 72; RESP 16; TEMP 36.8; O2SAT 100
--- NOTE | 2022-06-02 22:55 | ECG_ITS ---
Measurements Intervals [place] Rate: 65 P: -6 ID: 154 QRS: -16 QRSD: 97 T: 9 QT: 397 QTc: 415 Interpretive Statements SINUS RHYTHM BASELINE ARTIFACT VOLTAGE CRITERIA FOR LVH BORDERLINE ECG COMPARED TO ECG 05/17/2022 07:49:27 NO SIGNIFICANT CHANGES Electronically Signed On 06-03-2022 15:07:13 CDT by Scott Holm M.D.
[2022-06-02 23:07] LABS: Basophils Percent Auto 0.7 % (0.2-1.2); Eosinophils Absolute Auto 0.1 K/mm3 (0-0.3); Eosinophils Percent Auto 2.1 % (0-4.4); Hematocrit 33.8 % (37.0-47.0); Hemoglobin 10.4 g/dL (12.0-15.0); Immature Granulocyte Absolute 0.01 K/mm3 (0.00-0.031); Immature Granulocyte Percent A 0.2 % (0-0.5); Lymphocytes Absolute Auto 2.68 K/mm3 (0.9-3.2); Lymphocytes Percent Auto 45.9 % (18.3-44.2); Mean Corpuscular HGB Conc 30.8 g/dl (32-36); Mean Corpuscular Hemoglobin 26.6 pg (26-34); Mean Corpuscular Volume 86.4 fl (80-100); Mean Platelet Volume 10.9 fl (7.4-10.4); Monocytes Absolute Auto 0.4 K/mm3 (0.1-0.6); Monocytes Percent Auto 7.5 % (2.6-8.5); Neutrophils Absolute Auto 2.6 K/mm3 (1.3-6.7); Neutrophils Percent Auto 43.6 % (45.5-73.1); Platelet Count Result 284 k/mm3 (150-375); Red Blood Count 3.91 M/mm3 (4.2-5.4); Red Cell Distribution Width 16.2 % (11.5-14.5); White Blood Count 5.8 K/mm3 (4.5-10.0)
[2022-06-02 23:08] VITALS: PULSE 68; RESP 14; O2SAT 100
[2022-06-02 23:15] VITALS: PULSE 65; RESP 15; O2SAT 100
[2022-06-02 23:21] LABS: Alanine Aminotransferase 34 U/L (6-35); Albumin Level 4.9 g/dL (3.5-5.1); Alkaline Phosphatase 76 U/L (38-126); Anion Gap 10 mmol/L (8-16); Aspartate Amino Transferase 53 U/L (14-36); Bilirubin,Total 0.8 mg/dL (0.2-1.3); Blood Urea Nitrogen 16 mg/dL (7-17); Calcium 9.7 mg/dL (8.4-10.2); Carbon Dioxide 26 mmol/L (22-30); Chloride 97 mmol/L (98-107); Estimated CRCL calculation 98 ml/min; Estimated Glomerular Filt Rate > 60; Glucose 132 mg/dL (65-110); Lipase 187 U/L (23-300); Potassium 3.9 mmol/L (3.4-5.0); Prothrombin Time 12.9 Seconds (11.1-14.7); Sodium 133 mmol/L (137-145)
[2022-06-02 23:22] LABS: Partial Thromboplastin Time 28.9 SECONDS (22.3-36.8)
[2022-06-02 23:30] VITALS: BP 152/90; PULSE 65; RESP 12; O2SAT 100
[2022-06-02 23:33] LABS: Troponin I < 0.012 ng/mL (0.000-0.034)
[2022-06-02 23:41] VITALS: BP 152/90; PULSE 69; RESP 17; O2SAT 99
[2022-06-02 23:45] VITALS: PULSE 69; RESP 13
--- NOTE | 2022-06-02 23:54 | ED.GENADULT ---
HPI - General Adult General Chief complaint: Chest Pain Stated complaint: Headache Time Seen by Provider: 06/02/22 23:12 History of Present Illness HPI narrative: A 42-year-old female who suffered a right thalamic stroke 2 weeks ago. 2 hours ago the patient was watching TV when she experienced acute onset of a headache that is bilaterally at the back of her head. She is very concerned that she was having another stroke. She checked her blood pressure and was elevated at 1 70/106. After she checked her blood pressures developed a substernal heaviness that is nonradiating, 8 out 10 intensity improving. She has experienced pain like this in the past but not for a long time. in factors. She has not noted any new numbness tingling or weakness outside of the left-sided numbness from her previous stroke. She has not have any vomiting, diaphoresis or difficulty breathing. Patient is very concerned about her health and that she is having another stroke. Related Data Home Medications Medication Instructions Recorded Confirmed norethindrone (contraceptive) 0.35 0.35 mg PO DAILY 09/01/19 05/17/22 mg tablet Elderberry Zinc Vit C 1 tablet PO DAILY 05/17/22 05/17/22 amlodipine 10 mg tablet 10 mg PO DAILY 05/17/22 05/17/22 cholecalciferol (vitamin D3) 125 125 mcg PO DAILY 05/17/22 05/17/22 mcg (5,000 unit) capsule (Dialyvite Vitamin D) Allergies Allergy/AdvReac Type Severity Reaction Status Date / Time No Known Allergies Allergy Mild Verified 06/02/22 22:55 Review of Systems Review of Systems: CONSTITUTIONAL: Denies night sweats. EYES: No eye pain ENT: Denies rhinorrhea CARDIOVASCULAR: Denies palpitations RESPIRATORY: Denies hemoptysis GASTROINTESTINAL: Denies hematemesis GENITOURINARY: Denies hematuria. SKIN: Denies rash MUSCULOSKELETAL: Denies myalgia. NEUROLOGIC: Denies weakness. 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 The patient admits to using CBD but denies any use. She is a social drinker and typically drinks a couple drinks she is out with her friends. The patient has 1 child. She does not have a durable power patent attorney. Lifelong nonsmoker Code status full code Smoking status: Never smoker Second hand tobacco smoke exposure: No Alcohol intake: current Substance use: current Substance use type: marijuana Spiritual care concerns: No Exam Narrative: APPEARANCE: No apparent distress. Head atraumatic. EYES: PERRLA/EOMI, NOSE: Normal no drainage NECK: Supple, Trachea midline RESPIRATORY: CTAB, No increased work of breathing. CARDIOVASCULAR: S1S2 appreciated ABDOMINAL: Soft, nontender, nondistended, MUSCULOSKELETAl: No obvious deformities NEURO: Alert. Cranial nerves 2-12 grossly intact. motor function cerebellar function intact for 4 extremities. to light touch is dulled on the left face, left arm and left leg. It is intact on the right side of her body. This is from her previous stroke.Gait exam was normal. SKIN:: Warm, dry. Normal color PSYCHIATRIC: Normal affect Course Vital Signs Vital signs: Vital Signs Temperature 98.2 F 06/02/22 22:52 Pulse Rate 72 06/02/22 22:52 Respiratory Rate 16 06/02/22 22:52 Blood Pressure 149/95 H 06/02/22 22:52 Pulse Oximetry 100 06/02/22 22:52 Oxygen Delivery Room Air 06/02/22 22:52 Temperature 98.2 F 06/02/22 22:52 Pulse Rate
[2022-06-03 00:06] VITALS: PULSE 68; RESP 12; O2SAT 99
[2022-06-03 00:15] VITALS: PULSE 72; RESP 14; O2SAT 99
[2022-06-03 00:30] VITALS: PULSE 66; RESP 13; O2SAT 97
[2022-06-03 00:52] VITALS: BP 144/91
[2022-06-03 03:16] LABS: Troponin I < 0.012 ng/mL (0.000-0.034)
[2022-06-03 03:30] VITALS: BP 141/97; PULSE 66; RESP 16; O2SAT 100
== END 2022-06-03 03:25 | disposition home or self-care (01) ==
PROVIDERS: Emergency Provider Emergency Medicine; PCP Nurse Practitioner Family
DX: R51.9 Headache, unspecified (principal); R07.9 Chest pain, unspecified; I69.398 Other sequelae of cerebral infarction; R20.0 Anesthesia of skin; E11.40 Type 2 diabetes mellitus with diabetic neuropathy, unspecified; I10 Essential (primary) hypertension; Z79.4 Long term (current) use of insulin; Z79.82 Long term (current) use of aspirin; R94.31 Abnormal electrocardiogram [ECG] [EKG]
CPT/HCPCS: 36415; 70450; 71046; 80053; 83690; 84484; 85025; 85610; 85730; 93005; 99284

== ENCOUNTER 2022-07-21 00:08 | Emergency (ER) | payer OTHER, SELFPAY ==
[2022-07-21 00:12] VITALS: BP 140/87; PULSE 79; RESP 16; TEMP 36.6; O2SAT 100
[2022-07-21] MEDS: SODIUM CHLORIDE 0.9% IV 1,000 ML 999 ML IV CONT (01:06)
[2022-07-21] MEDS: KETOROLAC 15 MG/ML VIAL (*BKC) IV PUSH (01:07)
[2022-07-21 01:17] LABS: Basophils Percent Auto 0.6 % (0.2-1.2); Eosinophils Absolute Auto 0.2 K/mm3 (0-0.3); Eosinophils Percent Auto 2.5 % (0-4.4); Hematocrit 32.9 % (37.0-47.0); Hemoglobin 10.4 g/dL (12.0-15.0); Immature Granulocyte Absolute 0.02 K/mm3 (0.00-0.031); Immature Granulocyte Percent A 0.3 % (0-0.5); Lymphocytes Percent Auto 29.6 % (18.3-44.2); Mean Corpuscular HGB Conc 31.6 g/dl (32-36); Mean Corpuscular Hemoglobin 26.9 pg (26-34); Mean Platelet Volume 10.9 fl (7.4-10.4); Monocytes Absolute Auto 0.5 K/mm3 (0.1-0.6); Monocytes Percent Auto 7.7 % (2.6-8.5); Neutrophils Percent Auto 59.3 % (45.5-73.1); Platelet Count Result 253 k/mm3 (150-375); Red Blood Count 3.87 M/mm3 (4.2-5.4); Red Cell Distribution Width 13.9 % (11.5-14.5); White Blood Count 6.8 K/mm3 (4.5-10.0)
[2022-07-21 01:28] LABS: Alanine Aminotransferase 17 U/L (6-35); Albumin Level 4.7 g/dL (3.5-5.1); Alkaline Phosphatase 73 U/L (38-126); Anion Gap 10 mmol/L (8-16); Aspartate Amino Transferase 24 U/L (14-36); Bilirubin,Total 1.1 mg/dL (0.2-1.3); Blood Urea Nitrogen 18 mg/dL (7-17); Calcium 9.5 mg/dL (8.4-10.2); Carbon Dioxide 25 mmol/L (22-30); Chloride 100 mmol/L (98-107); Creatine Kinase 75 U/L (30-135); Estimated CRCL calculation 88 ml/min; Estimated Glomerular Filt Rate > 60; Glucose 134 mg/dL (65-110); Potassium 4.1 mmol/L (3.4-5.0); Sodium 135 mmol/L (137-145)
--- NOTE | 2022-07-21 02:31 | ED.GENADULT ---
HPI - General Adult General Chief complaint: Extremity Problem,Nontraumatic Stated complaint: pains in legs Time Seen by Provider: 07/21/22 00:25 History of Present Illness HPI narrative: Patient is a 42-year-old female who presents ER with pain in her legs bilaterally and concern for DVT. Patient recently hospitalized after having a CVA causing numbness and weakness on the left side. Reports she has had some persistent numbness since the CVA. She reports that tonight she had sudden onset pain mainly in the proximal right thigh at the inguinal crease. She is concerned she may have a DVT. No swelling to legs. Pain is worse with movement of the right leg. She is also had some pain in her left buttock radiating around the left side of lower extremity as well. This area is not as bad. No alleviating factors at home. No new facial weakness or slurred speech. Patient thinks she may have some increased tingling in the left leg now. Related Data Home Medications Medication Instructions Recorded Confirmed norethindrone (contraceptive) 0.35 0.35 mg PO DAILY 09/01/19 07/15/22 mg tablet Elderberry Zinc Vit C 1 tablet PO DAILY 05/17/22 07/15/22 amlodipine 10 mg tablet 10 mg PO DAILY 05/17/22 07/15/22 cholecalciferol (vitamin D3) 125 125 mcg PO DAILY 05/17/22 07/15/22 mcg (5,000 unit) capsule (Dialyvite Vitamin D) flash glucose sensor (FreeStyle #1 ea 07/14/22 07/15/22 Rosa 14 Day Sensor kit) levothyroxine 25 mcg tablet 25 mcg PO 07/14/22 07/15/22 pen needle, diabetic 31 gauge x #50 ea 07/14/22 07/15/22/16 (BD Ultra-Fine Mini Pen Needle) Allergies Allergy/AdvReac Type Severity Reaction Status Date / Time No Known Allergies Allergy Mild Verified 07/14/22 09:24 Review of Systems Review of Systems: All systems reviewed & are unremarkable except as noted in HPI and below Constitutional: Constitutional: Denies chills, Denies fatigue and Denies fever(s) Cardiovascular: Cardiovascular: Denies chest pain, Denies rapid heart rate and Denies radiating jaw, neck or arm pain Respiratory: Respiratory: Denies cough and Denies dyspnea Musculoskeletal: Musculoskeletal: Reports arthralgias, Denies joint swelling and Denies muscle cramps Integumentary/Breasts: Skin/Breast: Denies erythema and Denies rash Neurologic: Denies headache(s), Denies focal weakness and Reports numbness PMFSH Past Medical History Medical History CVA (cerebral vascular accident) Diabetes Diabetic neuropathy Hypertension Surgical History Surgical History No pertinent past surgical history Family History Family History Father Diabetes mellitus Mother Hypertension Social History Social History Social History: 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 The patient admits to using CBD but denies any use. She is a social drinker and typically drinks a couple drinks she is out with her friends. The patient has 1 child. She does not have a durable power family law attorney. Lifelong nonsmoker Code status full code Smoking status: Never smoker Second hand tobacco smoke exposure: No Alcohol intake: current Substance use: current Substance use type: marijuana Spiritual care concerns: No Exam Narrative: GENERAL: Well-appearing, well-nourished, and in no acute distress. HEAD: Normocephalic, atraumatic. EYES: PERRL and EOMI. CHEST: Clear to auscultation. No respiratory distress. HEART: Regular rate and rhythm. Normal dorsalis pedis and posterior tibial pulses bilaterally. Normal femoral pulses as well. ABDOMEN: Soft, nontender, nondistended, normal active bowel sounds. EXTREMITIES: Pain with passive range of motion of the proximal right thigh with flexion. Normal range of motion ankle and
[2022-07-21] MEDS: MORPHINE SULFATE (*CRX) 4 MG/ML INJ IV PUSH (02:58)
[2022-07-21 03:25] LABS: D Dimer 0.39 ug/mL (<0.48)
[2022-07-21 04:24] VITALS: BP 145/77; PULSE 89; RESP 18
== END 2022-07-21 04:27 | disposition home or self-care (01) ==
PROVIDERS: Emergency Provider Emergency Medicine; PCP Nurse Practitioner Family
DX: R25.2 Cramp and spasm (principal); M79.604 Pain in right leg; M79.605 Pain in left leg; E11.40 Type 2 diabetes mellitus with diabetic neuropathy, unspecified; I10 Essential (primary) hypertension; Z86.73 Personal history of transient ischemic attack (TIA), and cerebral infarction without residual deficits; F12.90 Cannabis use, unspecified, uncomplicated; Z79.82 Long term (current) use of aspirin; Z79.899 Other long term (current) drug therapy
CPT/HCPCS: 36415; 80053; 82550; 83735; 85025; 85380; 96361; 96374; 96375; 99284; J1885; J2270; J7030

== ENCOUNTER 2022-07-21 07:52 | Outpatient (CLI) | payer OTHER, SELFPAY ==
--- NOTE | ~2022-07-21 | US_ITS ---
EXAMINATION: US venous doppler [facility] DATE: 07/21/2022 08:50 INDICATION: Lower limb pain. TECHNIQUE: Grayscale ultrasound images without and with compression and Doppler ultrasound images of the bilateral lower extremity veins were obtained. COMPARISON: Ultrasound 05/18/2022 FINDINGS: The visualized portions of right common femoral vein, profunda (deep) femoral vein, femoral vein, pop liteal vein, peroneal veins, posterior tibial veins, and greater saphenous vein outflow are patent. The visualized portions of left common femoral vein, profunda femoral vein, femoral vein, popliteal v ein, peroneal veins, posterior tibial veins, and greater saphenous vein outflow are patent. IMPRESSION: 1. No deep venous thrombosis. Reviewed, dictated and finalized at location A.
== END 2022-07-21 07:53 | disposition home or self-care (01) ==
PROVIDERS: PCP Nurse Practitioner Family; Visit Provider Nurse Practitioner Family
DX: M79.605 Pain in left leg (principal); M79.604 Pain in right leg
CPT/HCPCS: 93970

== ENCOUNTER 2022-08-20 09:15 | Outpatient (RCR) | payer OTHER, SELFPAY ==
[2022-07-20 13:10] VITALS: BMI 37.8
[2022-07-20 13:21] VITALS: BMI 37.8
[2022-07-20 15:37] VITALS: BMI 37.8
[2022-07-20 15:38] VITALS: BMI 37.8
== END 2022-10-05 08:35 | disposition home or self-care (01) ==
LOC: ANHDMC 09:15
PROVIDERS: PCP Nurse Practitioner Family; Visit Provider Nurse Practitioner Family
DX: E11.69 Type 2 diabetes mellitus with other specified complication (principal); Z71.3 Dietary counseling and surveillance; Z71.89 Other specified counseling
CPT/HCPCS: 97802; G0108

== ENCOUNTER 2022-10-25 10:23 | Outpatient (RCR) | payer OTHER, SELFPAY | END 2022-10-29 17:26 | disposition home or self-care (01) | LOC: ANHDMC 10:23 | PROVIDERS: PCP Nurse Practitioner Family; Visit Provider Nurse Practitioner Family | DX: E11.69 Type 2 diabetes mellitus with other specified complication (principal); Z71.89 Other specified counseling | CPT/HCPCS: G0108 ==

== ENCOUNTER 2024-04-25 11:05 | Outpatient (CLI) | payer OTHER, SELFPAY ==
[2024-04-25 11:46] LABS: Alanine Aminotransferase 25 U/L (6-35); Albumin Level 4.8 g/dL (3.5-5.1); Alkaline Phosphatase 90 U/L (38-126); Anion Gap 13 mmol/L (4-12); Aspartate Amino Transferase 29 U/L (14-36); Bilirubin,Total 0.9 mg/dL (0.2-1.3); Blood Urea Nitrogen 21 mg/dL (7-17); Calcium 9.3 mg/dL (8.4-10.2); Carbon Dioxide 28 mmol/L (22-30); Chloride 96 mmol/L (98-107); Cholesterol 243 mg/dL (0-200); Estimated Glomerular Filt Rate 59; Glucose 225 mg/dL (65-110); HDL Direct 61 mg/dL; Potassium 4.2 mmol/L (3.4-5.0); Sodium 137 mmol/L (137-145); Triglycerides 196 mg/dL (<150)
[2024-04-25 11:58] LABS: LDL Cholesterol Direct 143 mg/dL
[2024-04-25 12:03] LABS: Free T4 Free Thyroxine 0.93 ng/mL (0.78-2.19); Vitamin D 25 Hydroxy 29.8 ng/mL
[2024-04-25 12:06] LABS: Creatinine Urine 245.4 mg/dL
[2024-04-25 12:11] LABS: MALB Creatinine Ratio 14.5 mg/g (0-30); Microalbumin Urine Random 35.5 mg/L (0-16.7)
== END 2024-04-25 11:06 | disposition home or self-care (01) ==
LOC: ANHLAB 11:09
PROVIDERS: Visit Provider Internal Medicine Endocrinology, Diabetes & Metabolism
DX: R79.89 Other specified abnormal findings of blood chemistry (principal); E78.5 Hyperlipidemia, unspecified; E11.65 Type 2 diabetes mellitus with hyperglycemia; E11.69 Type 2 diabetes mellitus with other specified complication
CPT/HCPCS: 36415; 80053; 80061; 82043; 82306; 82607; 84439; 84443